=== PATIENT | male | born 1995 | race Caucasian/White ===

== ENCOUNTER 2024-11-04 13:41 | Inpatient (IN) | payer OTHER, SELFPAY ==
[2024-11-04 08:22] VITALS: BP 108/93
--- NOTE | 2024-11-04 09:17 | ED.GENMED ---
History of Present Illness
General
Chief Complaint: Skin Problem
Source: patient
Exam Limitations: none
Time Seen by Provider: 11/04/24 08:48
History of Present Illness
History of Present Illness:
29yoM with a history of obesity presenting with family members for evaluation of groin pain and swelling. Symptoms initially started 5 day ago with what he thought was an ingrown hair on the R side of the groin. He had a fever of 101 on his first
day of symptoms. He went to urgent care the following day and was diagnosed with cellulitis. He was told that there was no areas amenable to drainage and he was started on a course of Bactrim. He started to notice purulent drainage from the area
2-3 days ago. He began to experience sharp, stabbing pain in the groin yesterday as well as scrotal swelling. He continues to have chills but temperatures have been ranging from 98-99 the past few days. He is otherwise asymptomatic and denies any
vomiting, diarrhea, difficulty urinating, testicular pain. No prior history of MRSA.
Phy Exam
General Physical Exam
General Presentation: well appearing and no apparent distress
General age: appears stated age
General Skin: warm and dry
General Habitus: normal
General Mental: alert
ENT Exam
ENT Exam: normocephalic
Pulmonary Exam
Pulmonary Exam: no respiratory distress
Genitourinary Exam Male
Exam Male: other (Large area of induration present to the R groin/mons area with overlying erythema and warmth. There is an area laterally with foul smelling purulent drainage. +Reactive swelling to R scrotum. No crepitus, bullae, or pain out of
proportion. )
Neurological Exam
Neurological Exam: alert
Miguel Coma Scale
Eye Opening: Spontaneous
Verbal Response: Oriented
Motor Response: Obeys Commands
GCS Total Score: 15
Psychiatric Exam
Psychiatric Exam: normal mood/affect
Course
Orders/Labs/Results
Orders:
Orders
11/04/24 09:10
0.9% Sodium Chloride 1000 ml [Nss] 1,000 ml IV BOLUS
11/04/24 09:35
CT Pelvis With Iv Contrast Urgent
Comment:
Reason For Exam: Groin cellulitis, swelling
11/04/24 09:48
Complete Blood Count/With Diff Urgent
Comprehensive Metabolic Panel Urgent
Lactate Level [Lactic Acid] Urgent
Blood Culture Q30M
[facility] Source: Blood/Venous
Specimen Description:
Wound Culture [Wound/Abscess/Other Culture] Urgent
[facility]A Source: Groin
Specimen Description: Right
Date Specimen was Collected: 11/04/24
Time Specimen was Collected: 09:24
11/04/24 09:49
Blood Culture Q30M
[facility] Source: Blood/Venous
Specimen Description:
11/04/24 11:16
Diphenhydramine [Benadryl] 50 mg .ROUTE .STK-MED ONE
EPINEPHrine PF [Adrenalin] 1 mg .ROUTE .STK-MED ONE
11/04/24 11:17
Diphenhydramine [Benadryl] 50 mg IV NOW STA
11/04/24 11:43
Cefepime HCl [Maxipime] 2,000 mg IV NOW STA
11/04/24 11:57
Vancomycin [Vancocin] 2,000 mg 0.9% Sodium Chloride 500 ml [Nss] 500 ml IV NOW
11/04/24 12:58
Admit/Transfer Patient As Directed
Co-Sign Provider:
Level of Care: Inpatient admission
Assign to:: Medical/Surgical
Physician / Group: Presley
Diagnosis: Sepsis, Cellulitis
Reason for Hospitalization: IV abx
Expected length of stay greater than two midnights?: Yes
ELOS- Estimated Length of Stay in days: 3
I certify the patient meets the requirements for IP care: Yes
PRN Pain Medication Management As Directed
May give lesser potent ordered pain med per pt: Yes
preference::
Protocol:: Medication orders for pain may be administered in a
manner that supports deferring to patient preference
when the pt is:
- Requesting an ordered lesser potent pain medication.
Least to most potent pain medications are defined
as: acetaminophen < NSAID < tramadol < opioids
(morphine, oxycodone, hydromorphone).
- Requesting a lesser dose of the same medication IF
ORDERED.
- Requesting a less intrusive route of administration
if both routes are prescribed by the provider (PO <
IV).
11/04/24 12:59
Code Status As Directed
Resuscitation Status: Full Code
11/04/24 13:15
0.9% Sodium Chloride 1000 ml [Nss] 1,000 ml IV 100 mls/hr
Abnormal Lab Results
11/04/24
09:48
WBC 12.9 H 10^3/uL
(4.8-10.8)
RBC 4.42 L 10^6/uL
(4.70-6.10)
Hct 38.6 L %
(39.0-52.0)
MCH 31.4 H pg
(27.0-31.0)
Abs Immat Gran (auto) 0.1 H 10^3/uL
(0-0.05)
Absolute Neuts (auto) 10.4 H 10^3/uL
(1.4-6.5)
Absolute Monos (auto) 0.8 H 10^3/uL
(0.1-0.6)
Immature Gran % 0.9 H %
(0-0.5)
Neutrophils % 80.7 H %
(42.2-75.2)
Lymphocytes % 10.2 L %
(20.5-51.1)
Glucose 121 H mg/dl
(70-99)
ALT 70 H U/L
(0-50)
11/04/24 09:48
11/04/24 09:48
Vital Signs
Initial and Last Documented VS:
Initial Vital Signs
Temp Pulse Resp Pulse Ox
98.1 F 98 18 99
11/04/24 08:21 11/04/24 08:21 11/04/24 08:21 11/04/24 08:21
Last Documented Vital Signs
Temp Pulse Resp BP Pulse Ox
99.2 F 104 23 127/82 97
11/04/24 12:00 11/04/24 12:45 11/04/24 12:45 11/04/24 12:00 11/04/24 12:45
MDM/Problems Addressed
Differential Diagnosis Includes:
29yoM here with R groin pain/swelling x 5 days. Started as an ingrown hair and has been gradually worsening. Started on Bactrim 4 days ago without improvement. Tmax 101 at home. +Chills. Vitals normal on arrival. There is a large area of induration
and erythema in the groin region on exam as well as purulent drainage. Differential diagnosis includes but is not limited to: Cellulitis, abscess, no pain out of proportion or crepitus to suggest NSTI
Initial ED plan: Check septic workup including blood cultures, wound culture, lactate, and CT pelvis. IV fluid bolus.
*Critical Care Note
Total Time (30-74mins, 75-104mins- exclusive of procedures): Not Applicable
Update Note
Update Note:
Labs reveal a leukocytosis with a white count of 12.9. Lactate within normal limits. CT shows moderate to severe right inguinal cellulitis. Patient did have some hives after receiving IV contrast which resolved with IV Benadryl. No associated
shortness of breath or signs of anaphylaxis. IV cefepime and vancomycin ordered. Given failure of outpatient antibiotics, he was admitted for further management.
ED Attending Note
-
Portions of this chart may have been created with voice recognition software.� Occasional wrong word or��sound alike� substitutions may have occurred due to the inherent limitations of voice recognition software.
Discharge Plan
Departure
Patient Disposition: Admit
Date of Disposition: 11/04/24
Time of Disposition: 12:17
Presentation/result/management discussed w/ accepting MD/DO: Hospitalist
Discharge Problem:
Cellulitis of groin
Interventions
Interventions:
*Risk Screen - Suicide Last Done: 11/04/24 08:22
*General Assessment Last Done: 11/04/24 08:22
*Neglect/Abuse Screening Last Done: 11/04/24 08:22
*ED- Fall Risk Assessment Last Done: 11/04/24 10:00
ED-Male Genitourinary Assessment Last Done: 11/04/24 10:00
[2024-11-04 09:29] VITALS: BMI 52.2
[2024-11-04] MEDS: NSS 1000 IV ×2 (09:49→16:20)
[2024-11-04 10:05] LABS: % Basophils 0.8 % (0-2); % Eosinophils 1.1 % (0-6); % Immature Granulocytes 0.9 % (0-0.5); % Lymphocytes 10.2 % (20.5-51.1); % Monocytes 6.3 % (1.7-9.3); % Neutrophils 80.7 % (42.2-75.2); Absolute Basophils 0.1 10^3/uL (0-0.2); Absolute Eosinophils 0.1 10^3/uL (0-0.7); Absolute Immature Granulocytes 0.1 10^3/uL (0-0.05); Absolute Lymphocytes 1.3 10^3/uL (1.2-3.4); Absolute Monocytes 0.8 10^3/uL (0.1-0.6); Absolute Neutrophils 10.4 10^3/uL (1.4-6.5); Hematocrit 38.6 % (39.0-52.0); Hemoglobin 13.9 g/dL (13.0-18.0); Mean Corpuscular Hgb 31.4 pg (27.0-31.0); Mean Corpuscular Volume 87.3 fL (80.0-94.0); Mean Platelet Volume 9.6 fL (7.4-10.4); Nucleated Red Blood Cells % 0 % (-); Platelet Count 293 10^3/uL (130-400); Red Blood Cell Count 4.42 10^6/uL (4.70-6.10); Red Cell Dist. Width 11.6 % (11.5-14.5); White Blood Cell Count 12.9 10^3/uL (4.8-10.8)
[2024-11-04 10:16] LABS: Lactic Acid 1.6 mmol/L (0.7-2.0)
[2024-11-04 10:19] LABS: ALT (SGPT) 70 U/L (0-50); AST (SGOT) 26 U/L (17-59); Albumin 4.5 g/dl (3.5-5.0); Alkaline Phosphatase 60 U/L (38-126); Blood Urea Nitrogen 17 mg/dl (9-20); Calcium 9.7 mg/dl (8.4-10.2); Carbon Dioxide 23 mmol/L (22-30); Chloride 106 mmol/L (98-107); Estimated Creatinine Clearance > 125 ml/min; Glucose 121 mg/dl (70-99); Potassium 4.2 mmol/L (3.5-5.1); Sodium 141 mmol/L (135-145); Total Bilirubin 1.1 mg/dl (0.2-1.3); eGFR > 60.00
[2024-11-04] MEDS: BENADRYL 50 MG IV (11:15)
--- NOTE | 2024-11-04 11:30 | EDRN ---
After patient returned from CT via stretcher, while moving past this RN I noticed the left side of his face appeared to have new hives present. When inquiring on this the patient stated that he feels itchy and denies respiratory difficulty or
discomfort. VSS were stable and Rose Marie WILLETT notified while this RN obtained benadryl IVP. Gave 50mg benadryl IVP and continued to monitor the patient. After about 40 minutes the patient was no longer experiencing hives or itching.
[2024-11-04 12:00] VITALS: BP 127/82
[2024-11-04] MEDS: MAXIPIME 2000 MG IV (12:30)
[2024-11-04] MEDS: VANCOCIN 540 MG IV (12:30)
--- NOTE | 2024-11-04 12:48 | HPS.HSE ---
Family Physician
-
Family Physician: BRIGITTE Harden
Chief Complaint
-
Right Groin Redness and Pain
History of Present Illness
Patient is a 29 y/o male who presents with increasing pain, redness and drainage from right groin area. Patient reports he was seen at urgent care on Tuesday, 4 days ago at which time he was started on Bactrim for right groin cellulitis. He
reports redness was improving particularly along the thigh but over the past 24 hours he has been experiencing worsening pain and began with a significant amount of drainage from the area. He reports fevers as high as 101F on Tuesday, but notes
over the past few temps have been lower around 99F. He reports some chills the first night, but again reports those are improving.
Medical History
Past Medical History
Past Medical History: Reports None
Past Surgical History: Reports Other
Additional Past Surgical History:
[place] Teeth Extraction
Social History
Tobacco: Non-smoker
Alcohol: None
Family History
Family History: Not pertinent
Allergies / Home Medications
Allergies reflects when Allergies were last updated in [facility].
Home Medications with original date entered in [facility]
Allergy/Medication List:
Allergies
Allergy/AdvReac Type Severity Reaction Status Date / Time
Iodinated Contrast Media Allergy Mild Hives Verified 11/04/24 12:53
Home Medications
sulfamethoxazole 800 mg-trimethoprim 160 mg tablet 1 tab PO BID 11/04/24
Review of Systems
-
A 12 point ROS was completed and negative except as noted: Yes
Constitutional: Reports Fever and Chills
Respiratory: Denies Cough or Trouble Breathing
Cardiac: Denies Chest Pain or Palpitations
Abdomen/GI: Denies Nausea or Diarrhea
Physical Exam
Vital Signs
Vital Signs
Temp Pulse Resp BP Pulse Ox
98.1 F 98 18 108/93 99
11/04/24 08:21 11/04/24 08:21 11/04/24 08:21 11/04/24 08:22 11/04/24 08:21
Physical Exam
General: Comfortable and Conversant
HEENT: Anicteric and Moist mucous membranes
Respiratory: Clear and Non Labored Respirations
Cardiac: S1/S2, Regular Rhythm and Tachycardia
GI: Soft and Non Tender
Musculoskeletal: No Clubbing and No Cyanosis
Skin: Warm, Dry and Other (Large area of erythema with induration across right groin and mons. Two small open areas, superior area with small amount of purulent drainage noted with foul smelling odor)
Neuro: Awake, Alert and Oriented
Hematologic/Lymphatic: Lymphadenopathy (Right groin)
Psych: Calm
Laboratory Results
-
11/04/24 09:48
11/04/24 09:48
Laboratory Results
Lactic Acid 1.6 mmol/L (0.7-2.0) 11/04/24 09:48
Total Bilirubin 1.1 mg/dl (0.2-1.3) 11/04/24 09:48
AST 26 U/L (17-59) 11/04/24 09:48
ALT 70 U/L (0-50) H 11/04/24 09:48
Alkaline Phosphatase 60 U/L (38-126) 11/04/24 09:[address]:
1. MODERATE to SEVERE RIGHT INGUINAL CELLULITIS.
2. Mild reactive right inguinal lymphadenopathy.
Data Reviewed
-
CT Scan: Report Reviewed by me
Lab Data: Labs Reviewed by me
Impression/Plan
-
Sepsis secondary to Right Inguinal Cellulitis
-Consult Surgery
-Continue vancomycin, cefepime and metronidazole
-Await wound and blood culture
Class III Obesity
-Affects all aspects of care
DVT proph: Lovenox
Code Status: Full Code
[2024-11-04 13:00] VITALS: BP 127/86
--- NOTE | 2024-11-04 13:17 | W.PN.UPDATE ---
Addendum entered and electronically signed by Elle Sherwood MD 11/04/24 17:48:
On exam patient is awake, alert, in on distress. CV: S1, S2, RRR. Chest clear. Abdomen soft. Right groin with area of exudate and significant surrounding erythema.
Original Note:
Update Note
Progress Note Update
This is an addendum to H&P written by BRENNON Steve
I saw and examined the patient.
The CLINICAL TRAINER's note was reviewed and I agree with the note.
Comment:
Mr. Naveen Orozco is a 29 yo man with hx obesity who presents to the ER with worsening pain right groin. He was started on treatment for right groin cellulitis 4 days prior with receding redness but had increased pain today. Since being in the ER
he noticed increased purulent drainage with relief o discomfort.
Triage VS: T 98.1, P 98, RR 18, SpO2 99%
LABS: WBC 12.9, Hg 13.9, PLT 293, Na 141, K+ 4.2, CO2 23, Cr 1.1, Glucose 121, T. Bili 1.1, ALT 70, lactate 1[address]:
IMPRESSION:
1. MODERATE to SEVERE RIGHT INGUINAL CELLULITIS.
2. Mild reactive right inguinal lymphadenopathy.
PELVIS: There is a moderate to large amount of focal subcutaneous edema in the right inguinal region extending from the skin surface to the right inguinal canal. There is overlying mild skin thickening. There is a mild amount of right inguinal
lymphadenopathy. There is no evidence for rim-enhancing enhancing loculated fluid collection to suggest an abscess. There is no evidence for soft tissue emphysema.
Right Groin Cellulitis
Sepsis 2/2 Above
-patient likely had a collection that is now draining resulting in resolution of pain; no abscess seen on CT
-continue Vanc/Cefepime and add on Flagyl for anaerobic coverage
-IVF
-pain control
-GS consult
Allergic Reaction to contrast
-patient had hives post contrast; he was given Benadryl
-Hives placed in allergy list
[2024-11-04 14:00] VITALS: BP 109/58
[2024-11-04 15:00] VITALS: BP 127/76
--- NOTE | 2024-11-04 15:25 | CM ---
Patient seen at bedside in ED with mother present. Patient states that he lives with his mother in a 2 story home and has no DME at this time. Patient independent of all adl's and Iadl's. Patient stated that BRENNON Alvarado is his PCP and he uses the
[facility] in [place]. Patient plan for discharge is to return to home with VN vs home with no needs.
Plan; home with VN vs home with no needs.
--- NOTE | 2024-11-04 15:38 | EDRN ---
Sent report to as the patient has had a room assigned for over 1 hour. When giving verbal notification that report was sent, Ingrid on stated they asked the nursing reduction plant supervisor to provide a private room and sent report back to this RN.
[2024-11-04 16:11] VITALS: BP 158/98; BMI 52.0
--- NOTE | 2024-11-04 16:35 | PTCARENOTE ---
Rec'd pt from ER. walked from stretcher to bed. NSS started at 100ml/hr per order. Denies pain. Mom at bedside. Oriented to room. Call velasco in reach.
[2024-11-04] MEDS: MAXIPIME 1000 MG IV (17:47)
[2024-11-04] MEDS: STERILE WATER FOR INJECTION 10 ML IV (17:47)
[2024-11-04] MEDS: FLAGYL 500 MG 100 IV (17:50)
[2024-11-04] MEDS: LOVENOX 60 MG SC (19:54)
--- NOTE | 2024-11-04 23:22 | PHA.VAN.IN ---
Assessment
- Assessment
Renal Function: Unknown baseline
Concomitant Antimicrobials: metronidazole, cefepime
AUC Dosing Plan
- Dosing Variables
Dosing Weight (kg): 159
Dosing CrCl (ml/min): 125
Vd coefficient (L/kg): 0.4
- Empiric Dosing
Initial / Loading Dose: Vancomycin 2000mg administered 11/04 at 1230
Maintenance Regimen: Vancomycin 1000mg IV Q8h
Estimated AUC (mcg*h/mL): 460
Estimated Peak (mcg*h/mL): 27.2
Estimated Trough (mcg/ml): 12.7
Estimated Half Life (H): 6
- Monitoring
No levels ordered at this time: Will f/u and order levels prior to steady state.
Pharmacokinetics Vancomycin I
- -
Patient Age: 29
Patient Sex: Male
Vancomycin Day #: 1
Indication: Skin And Soft Tissue
Requesting Provider: BRENNON Mcnally
Pertinent Antimicrobial Allergies:
no pertinent antibiotic allergies
Height / Weight:
Height 5 ft 9 in
Actual Weight 159.574 kg
Pertinent Past Medical History: BMI 52, filled Sulfamethoxazole/trimethoprim 10/31/24
- Vital Signs / Lab Results
Temp Pulse Resp BP Pulse Ox
98.9 F 103 16 158/98 98
11/04/24 16:11 11/04/24 16:11 11/04/24 16:11 11/04/24 16:11 11/04/24 16:11
Lab Results - Hematology
11/04/24
09:48
WBC 12.9 H
Lab Results - Chemistry
11/04/24
09:48
BUN 17
Creatinine 1.1
Estimated Creat Clear > 125
Albumin 4.5
11/04/24
09:48
Lactic Acid 1.6
Microbiology Results
11/04/24 09:48 Gram Stain - Preliminary
Promisein - Right
[2024-11-04] MEDS: VANCOCIN 200 IV (23:49)
[2024-11-05 00:37] VITALS: BP 158/90
[2024-11-05] MEDS: STERILE WATER FOR INJECTION 10 ML IV ×5 (00:57→23:13)
[2024-11-05] MEDS: MAXIPIME 1000 MG IV ×5 (00:57→23:12)
[2024-11-05] MEDS: FLAGYL 500 MG 100 IV ×3 (01:00→17:10)
[2024-11-05] MEDS: NSS 1000 IV ×2 (04:33→14:51)
[2024-11-05] MEDS: VANCOCIN 200 IV ×3 (05:12→21:37)
[2024-11-05 07:38] VITALS: BP 150/87
[2024-11-05] MEDS: LOVENOX 60 MG SC ×2 (08:00→20:04)
--- NOTE | 2024-11-05 08:33 | W.PN.HOSP.TC ---
Today's Communication/Plan
-
I&D performed today
Continue antibiotics
Follow cultures
Assessment / Plan
Assessment / Plan
Physical Exam
General: Comfortable and Conversant
HEENT: Anicteric and Moist mucous membranes
Respiratory: Clear to Auscultation Bilaterally
Cardiac: S1/S2, Regular Rate and Rhythm
GI: Soft and Non Tender. Positive bowel sounds.
Musculoskeletal: No Cyanosis
Skin: Warm. Dry. Right groin with area of exudate and significant surrounding erythema.
Neuro: Awake, Alert and Oriented
Hematologic/Lymphatic: Lymphadenopathy (Right groin)
Psych: Calm
Assessment/Plan
29 y/o male with history of obesity who presented with increasing pain, redness and drainage from right groin area. Patient reports he was seen at urgent care on October 31, 2024 at which time he was started on Bactrim for right groin cellulitis. He
reported redness was improving particularly along the thigh but over the 24 hours prior to presentation, he had been experiencing worsening pain and began with a significant amount of drainage from the area. He reported fevers as high as 101 F on
October 31, 2024, but notes over the past few temps (prior to presentation( have been lower around 99 F. He reports some chills the first night, but again reported that those are improving.
Triage VS: T 98.1, P 98, RR 18, SpO2 99%
LABS: WBC 12.9, Hg 13.9, PLT 293, Na 141, K+ 4.2, CO2 23, Cr 1.1, Glucose 121, T. Bili 1.1, ALT 70, lactate 1[address]:
IMPRESSION:
1. MODERATE to SEVERE RIGHT INGUINAL CELLULITIS.
2. Mild reactive right inguinal lymphadenopathy.
PELVIS: There is a moderate to large amount of focal subcutaneous edema in the right inguinal region extending from the skin surface to the right inguinal canal. There is overlying mild skin thickening. There is a mild amount of right inguinal
lymphadenopathy. There is no evidence for rim-enhancing enhancing loculated fluid collection to suggest an abscess. There is no evidence for soft tissue emphysema.
Right Groin Cellulitis
Sepsis 2/2 Above
-patient likely had a collection that is now draining resulting in resolution of pain; no abscess seen on CT
-continue Vanc/Cefepime and Flagyl was added on for anaerobic coverage
-IVF
-pain control
-General surgery was consulted: performed I&D on 11/05/24 -- no vinnie pus, some murky fluid was sent for culture
Allergic Reaction to contrast
-patient had hives post contrast; he was given Benadryl
-Hives placed in allergy list
Class III Obesity
-Affects all aspects of care
DVT proph: Lovenox
Code Status: Full Code
Anticipated Discharge: > 48 hours
Subjective/Interval History
-
Date of Service: November 05, 2024
Patient was seen and examined. He reported feeling better today, no new symptoms or complaints.
Objective Data
-
Labs:
Laboratory Results
11/05/24
08:15
WBC Pending
Hgb Pending
Hct Pending
Plt Count Pending
Sodium Pending
Potassium Pending
Chloride Pending
Carbon Dioxide Pending
BUN Pending
Creatinine Pending
Glucose Pending
Calcium Pending
Vital Signs:
Vital Signs
Temp Pulse Resp BP Pulse Ox
99.8 F 70 18 150/87 99
11/05/24 07:38 11/05/24 07:38 11/05/24 07:38 11/05/24 07:38 11/05/24 07:38
I&O
11/04/24 11/05/24 11/06/24
06:59 06:59 06:59
Intake Total 960 / 960
Balance 960 / 960
[2024-11-05 09:03] LABS: Hematocrit 40.5 % (39.0-52.0); Hemoglobin 14.2 g/dL (13.0-18.0); Mean Corp Hgb Conc. 35.1 g/dL (33.0-37.0); Mean Corpuscular Hgb 30.8 pg (27.0-31.0); Mean Corpuscular Volume 87.9 fL (80.0-94.0); Mean Platelet Volume 9.4 fL (7.4-10.4); Platelet Count 302 10^3/uL (130-400); Red Blood Cell Count 4.61 10^6/uL (4.70-6.10); Red Cell Dist. Width 11.5 % (11.5-14.5); White Blood Cell Count 8.3 10^3/uL (4.8-10.8)
[2024-11-05 09:19] LABS: Blood Urea Nitrogen 10 mg/dl (9-20); Calcium 9.3 mg/dl (8.4-10.2); Carbon Dioxide 26 mmol/L (22-30); Chloride 107 mmol/L (98-107); Estimated Creatinine Clearance > 125 ml/min; Glucose 97 mg/dl (70-99); Potassium 4.1 mmol/L (3.5-5.1); Sodium 141 mmol/L (135-145); eGFR > 60.00
[2024-11-05 09:40] LABS: Glycohemoglobin (HgbA1c) 4.8 % (4.0-5.6)
--- NOTE | 2024-11-05 10:17 | CON.GS ---
Addendum entered and electronically signed by Keron Rothman MD 11/05/24 16:52:
I saw and examined the patient independently.
The Public Health Assistant's note was reviewed and I agree with the note, assessment and plan except where noted below.
Comment: This is a 29-year-old male with a history of morbid obesity found to have increasing pain, redness and more recently discharge from the wound/abscess in the right groin thought to be from an ingrown hair. CT scan demonstrated fat
stranding in this area as well as enlarged lymph nodes but no radiographic abscess or collection. General surgery consulted for management.
Will plan for bedside incision and drainage. See separately dictated note.
Continue antibiotics, follow-up cultures.
Risks/Benefits/Alternatives, expected postoperative course and possible complications (bleeding, infection, injury to surrounding structures, acute/chronic pain) discussed at length. Patient wishes to proceed with surgery. All questions answered.
Consent obtained.
I spent 65 minutes in total for the care of this patient today including direct patient care and counseling, reviewing labs, imaging, coordination of care, as well as documentation.
Original Note:
Consultation
-
Date/Time Consultation Performed: 11/05/24914
Medical History
-
Chief Complaint: Right groin drainage
History of Present Illness:
This is a 29 yo male with a h/o morbid obesity who presented through the ED with increasing pain and erythema to his right groin with serous drainage. Around October 30, he noted inflammation in his groin which he attributed to an ingrown hair. He had
a fever of 101 and chills and the swelling and edema increased by the following day so he presented to an urgent care and was prescribed Bactrim. He has had intermittent chills at night but denies fevers since that time. Yesterday, he began having
serous drainage from the site with increasing pain and continued inflammation and erythema causing him to present through the ED for evaluation. On exam, there is serous weeping through a pinpoint opening of an indurated and erythematous area to the
right groin.
Past Medical History
Past Medical History: Other (morbid obesityy)
Past Surgical History: Other (wisdom teeth)
Social History
Tobacco: Non-Smoker
Alcohol: None
Family History
Family History: Reviewed & Not Pertinent
Allergies / Home Medications
Allergy/AdvReac Type Severity Reaction Status Date / Time
Iodinated Contrast Media Allergy Mild Hives Verified 11/04/24 12:53
�Medication �Instructions �Recorded �Confirmed �Type
ibuprofen 200 mg tablet 600 mg PO BIDPRN PRN mild pain 11/04/24 11/04/24 History
sulfamethoxazole 800 1 tab PO BID 11/04/24 11/04/24 History
mg-trimethoprim 160 mg tablet
Review of Systems
-
History Source: Patient
All other systems: Negative unless noted
A 10 point review of systems was completed, and was negative except as per HPI.
Physical Exam
Vital Signs
Temp Pulse Resp BP Pulse Ox
99.8 F 70 18 150/87 99
11/05/24 07:38 11/05/24 07:38 11/05/24 07:38 11/05/24 07:38 11/05/24 07:38
11/04/24 11/05/24 11/06/24
06:59 06:59 06:59
Actual Weight 159.574 kg
Body Mass Index (BMI) 52.0
Lab Results
11/05/24 08:15
11/05/24 08:15
WBC 8.3 10^3/uL (4.8-10.8) 11/05/24 08:15
Hgb 14.2 g/dL (13.0-18.0) 11/05/24 08:15
Hct 40.5 % (39.0-52.0) 11/05/24 08:15
Plt Count 302 10^3/uL (130-400) 11/05/24 08:15
Abs Immat Gran (auto) 0.1 10^3/uL (0-0.05) H 11/04/24 09:48
Neutrophils % 80.7 % (42.2-75.2) H 11/04/24 09:48
Physical Exam
General: Well Developed and No Apparent Distress
HEENT: Moist Mucous Membranes
Respiratory: Non Labored Respirations
GI: Soft, Non Tender and Non Distended
Skin: Warm and Other (erythema and induration to the right groin with serous drainage)
Neuro: Awake, Alert and AO x 3
Psych: Calm
Assessment / Plan
-
29 yo male presenting with right groin which has failed outpatient abx (Bactrim). Leukocytosis on presentation has resolved with abx. A1C WNL. CT pelvis reviewed with demonstrates moderate to severe cellulitis with subq edema to the right inguinal
region/canal with some mild lymphadenopathy. AFVSS. Pain is well controlled but the area is tender on exam with local erythema, serous drainage and induration. Wound cx pending. Blood cx NGTD.
--Continue ABX and await cultures
--Continue current diet
--Will plan bedside I&D later today
--- NOTE | 2024-11-05 11:46 | PHA.VAN.FU ---
Addendum entered and electronically signed by Renae Vazquez [facility] 11/05/24 16:57:
BUN & SCR ordered per protocol
Original Note:
Vancomycin Assessment / Plan
- Assessment
Renal Function: Stable (1.0)
WBC's are: WNL (8.3)
In the past 24 hrs, patient has been: Afebrile
Concomitant Antimicrobials: Cefepime, Metronidazole
- Dosing Plan
Continue: Vanco 1000mg Q8H
- Monitoring Plan
Trough Level: T level 11/06/24 0530
Monitoring Comments: Pre-Steady State
- Follow Up
Pharmacy will continue to follow.
Vancomycin Follow UP
- -
Patient Age: 29
Patient Sex: Male
Vancomycin Day #: 2
Indication: Skin And Soft Tissue
Requesting Provider: BRENNON Mcnally
Pertinent Antimicrobial Allergies:
no pertinent antibiotic allergies
Height / Weight:
Height 5 ft 9 in
Actual Weight 159.574 kg
Pertinent Past Medical History: BMI 52, filled Sulfamethoxazole/trimethoprim 10/31/24
- Vital Signs / Lab Results
Temp Pulse Resp BP Pulse Ox
99.8 F 70 18 150/87 99
11/05/24 07:38 11/05/24 07:38 11/05/24 07:38 11/05/24 07:38 11/05/24 07:38
Lab Results - Hematology
11/04/24 11/05/24
09:48 08:15
WBC 12.9 H 8.3
Lab Results - Chemistry
11/04/24 11/05/24
09:48 08:15
BUN 17 10
Creatinine 1.1 1.0
Estimated Creat Clear > 125 > 125
Albumin 4.5
11/04/24
09:48
Lactic Acid 1.6
Microbiology Results
11/04/24 09:48 Blood Culture - Preliminary
Blood/Venous No Growth in 24 hours- Final report to follow
11/04/24 09:49 Blood Culture - Preliminary
Blood/Venous No Growth in 24 hours- Final report to follow
11/04/24 09:48 Wound Culture - Preliminary
Groin - Right Gram Stain - Preliminary
[2024-11-05] MEDS: DILAUDID 1 MG IV (13:00)
--- NOTE | 2024-11-05 13:34 | W.PN.SURGUPD ---
Surgical Update
Surgical Update
Bedside incision and Drainage
A team time-out was performed confirming the location/laterality of the procedure, consent and allergies reviewed.
Location: Right groin
Dimensions: 5 x 3 cm
Local: 1% Lidocaine
Pharmacy Informaticist: Joanna
The skin was cleaned with alcohol and anesthetized with lidocaine. A cruciate incision was made over the lesion and dissection carried down through subcutaneous tissue. The cavity was identified, and there was some release of hemorrhagic murky fluid
but no vinnie pus. The wound was irrigated with sterile saline. Hemostasis was obtained. There was minimal blood loss. The skin was packed with a packing strip. A culture was sent. The patient tolerated the procedure well, discharge instructions
reviewed and all questions were answered.
--- NOTE | 2024-11-05 13:34 | CM ---
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
Plan; Home when stable.
[2024-11-05] MEDS: XYLOCAINE 2% WITH EPINEPHRINE 20 ML INFIL (14:51)
[2024-11-05 15:12] VITALS: BP 150/86
[2024-11-05] MEDS: TORADOL 15 MG IV (17:10)
[2024-11-05 23:25] VITALS: BP 162/92
[2024-11-06] MEDS: FLAGYL 500 MG 100 IV ×3 (02:02→16:36)
[2024-11-06 02:08] VITALS: BP 131/85
[2024-11-06] MEDS: STERILE WATER FOR INJECTION 10 ML IV ×3 (05:20→16:36)
[2024-11-06] MEDS: NSS 1000 IV (05:20)
[2024-11-06] MEDS: MAXIPIME 1000 MG IV ×3 (05:20→16:36)
[2024-11-06 06:31] LABS: Blood Urea Nitrogen 13 mg/dl (9-20); Calcium 10.2 mg/dl (8.4-10.2); Carbon Dioxide 29 mmol/L (22-30); Chloride 105 mmol/L (98-107); Estimated Creatinine Clearance > 125 ml/min; Glucose 104 mg/dl (70-99); Potassium 4.9 mmol/L (3.5-5.1); Sodium 146 mmol/L (135-145); eGFR > 60.00
[2024-11-06 06:41] LABS: Vancomycin Trough 7.5 ug/ml (5-20)
[2024-11-06 06:51] LABS: % Basophils 1.1 % (0-2); % Eosinophils 2.9 % (0-6); % Lymphocytes 22.1 % (20.5-51.1); % Monocytes 6.4 % (1.7-9.3); % Neutrophils 66.5 % (42.2-75.2); Absolute Basophils 0.1 10^3/uL (0-0.2); Absolute Eosinophils 0.4 10^3/uL (0-0.7); Absolute Immature Granulocytes 0.1 10^3/uL (0-0.05); Absolute Lymphocytes 2.6 10^3/uL (1.2-3.4); Absolute Monocytes 0.8 10^3/uL (0.1-0.6); Absolute Neutrophils 7.9 10^3/uL (1.4-6.5); Hematocrit 41.9 % (39.0-52.0); Hemoglobin 14.8 g/dL (13.0-18.0); Mean Corp Hgb Conc. 35.3 g/dL (33.0-37.0); Mean Corpuscular Volume 87.7 fL (80.0-94.0); Mean Platelet Volume 9.4 fL (7.4-10.4); Nucleated Red Blood Cells % 0 % (-); Platelet Count 375 10^3/uL (130-400); Red Blood Cell Count 4.78 10^6/uL (4.70-6.10); Red Cell Dist. Width 11.4 % (11.5-14.5); White Blood Cell Count 11.9 10^3/uL (4.8-10.8)
[2024-11-06 07:30] VITALS: BP 165/93
[2024-11-06] MEDS: VANCOCIN 200 IV ×2 (08:06→13:19)
[2024-11-06] MEDS: LOVENOX 60 MG SC (08:10)
--- NOTE | 2024-11-06 08:48 | W.PN.SURGUPD ---
Surgical Update
Surgical Update
Patient reports improvement in discomfort. Packing removed. Minimal to no drainage. Continues with some mild erythema and induration. Area replaced with gauze and an ABD. Recommend diligent hygiene, sitz baths and washing of the area. Coverage
with overlying gauze and ABDs. Cultures pending, will need discharge on antibiotics. No plans or role for further surgical intervention. Please call with any questions or concerns.
--- NOTE | 2024-11-06 08:57 | PHA.VAN.FU ---
Vancomycin Assessment / Plan
- Assessment
Renal Function: Stable (1.0)
WBC's are: Trending Up (8.3->11.9)
In the past 24 hrs, patient has been: Afebrile
Concomitant Antimicrobials: Cefepime, Metronidazole
- Assessment - Trough Based Monitoring
Trough Value: 7.5
Level Today was: At Pre-Steady State (after 4th maintenance dose)
- Dosing Plan
Adjust Regimen to: Vanco 1250mg Q8H starting 11/06/24 2200
- Monitoring Plan
No level(s) ordered at this time: Consider in the next few days
- Follow Up
Pharmacy will continue to follow.
Vancomycin Follow UP
- -
Patient Age: 29
Patient Sex: Male
Vancomycin Day #: 3
Indication: Skin And Soft Tissue
Requesting Provider: BRENNON Mcnally
Pertinent Antimicrobial Allergies:
no pertinent antibiotic allergies
Height / Weight:
Height 5 ft 9 in
Actual Weight 159.574 kg
Pertinent Past Medical History: BMI 52, filled Sulfamethoxazole/trimethoprim 10/31/24
- Vital Signs / Lab Results
Temp Pulse Resp BP Pulse Ox
97.7 F 79 20 165/93 98
11/06/24 07:30 11/06/24 07:30 11/06/24 07:30 11/06/24 07:30 11/06/24 07:30
Lab Results - Hematology
11/04/24 11/05/24 11/06/24
09:48 08:15 05:48
WBC 12.9 H 8.3 11.9 H
Lab Results - Chemistry
11/04/24 11/05/24 11/06/24
09:48 08:15 05:48
BUN 17 10 13
Creatinine 1.1 1.0 1.0
Estimated Creat Clear > 125 > 125 > 125
Albumin 4.5
11/04/24
09:48
Lactic Acid 1.6
Microbiology Results
11/04/24 09:48 Blood Culture - Preliminary
Blood/Venous No Growth in 24 hours- Final report to follow
11/04/24 09:49 Blood Culture - Preliminary
Blood/Venous No Growth in 24 hours- Final report to follow
11/04/24 09:48 Wound Culture - Preliminary
Groin - Right Gram Stain - Preliminary
Therapeutic Drug Monitoring
Vancomycin Trough 7.5 ug/ml (5-20) 11/06/24 05:48
--- NOTE | 2024-11-06 13:41 | W.PN.HOSP.TC ---
Today's Communication/Plan
-
Follow cultures
Continue antibiotics
Appreciate ID
Assessment / Plan
Assessment / Plan
Physical Exam
General: Comfortable and Conversant
HEENT: Normocephalic. Moist mucous membranes
Respiratory: Clear to Auscultation Bilaterally
Cardiac: S1/S2, Regular Rate and Rhythm
GI: Soft and Non Tender. Positive bowel sounds.
Musculoskeletal: No Cyanosis
Skin: Warm. Dry. Right groin with area of exudate and significant surrounding erythema.
Neuro: Awake, Alert and Oriented
Hematologic/Lymphatic: Lymphadenopathy (Right groin)
Psych: Calm
Assessment/Plan
29 y/o male with history of obesity who presented with increasing pain, redness and drainage from right groin area. Patient reports he was seen at urgent care on October 31, 2024 at which time he was started on Bactrim for right groin cellulitis. He
reported redness was improving particularly along the thigh but over the 24 hours prior to presentation, he had been experiencing worsening pain and began with a significant amount of drainage from the area. He reported fevers as high as 101 F on
October 31, 2024, but notes over the past few temps (prior to presentation( have been lower around 99 F. He reports some chills the first night, but again reported that those are improving.
Triage VS: T 98.1, P 98, RR 18, SpO2 99%
LABS: WBC 12.9, Hg 13.9, PLT 293, Na 141, K+ 4.2, CO2 23, Cr 1.1, Glucose 121, T. Bili 1.1, ALT 70, lactate 1[address]:
IMPRESSION:
1. MODERATE to SEVERE RIGHT INGUINAL CELLULITIS.
2. Mild reactive right inguinal lymphadenopathy.
PELVIS: There is a moderate to large amount of focal subcutaneous edema in the right inguinal region extending from the skin surface to the right inguinal canal. There is overlying mild skin thickening. There is a mild amount of right inguinal
lymphadenopathy. There is no evidence for rim-enhancing enhancing loculated fluid collection to suggest an abscess. There is no evidence for soft tissue emphysema.
Severe Right Groin Cellulitis
Sepsis 2/2 Above
-patient likely had a collection that is now draining resulting in resolution of pain; no abscess seen on CT
-continue Vanc/Cefepime and Flagyl was added on for anaerobic coverage
-IVF
-pain control
-General surgery was consulted: performed I&D on 11/05/24 -- no vinnie pus, some murky fluid was sent for culture
-Follow cultures
-ID consulted given severity and location of cellulitis, appreciate their evaluation and recommendations
Mild Hypernatremia
-Nurse will encourage patient to drink more water
Allergic Reaction to contrast
-patient had hives post contrast; he was given Benadryl
-Hives placed in allergy list
Class III Obesity
-Affects all aspects of care
On November 06, 2024, I spoke to patient and patient's parents inside patient's room; all questions and concerns were answered to satisfaction.
DVT Prophylaxis: Lovenox
Code Status: Full Code
Anticipated Discharge: 24 - 48 hours
Subjective/Interval History
-
Date of Service: November 06, 2024
Patient was seen and examined. He reported feeling a lot better, still significant pain with dressing manipulation in the affected area.
Objective Data
-
Labs:
Laboratory Results
11/06/24
05:48
WBC 11.9 H
Hgb 14.8
Hct 41.9
Plt Count 375 D
Sodium 146 H
Potassium 4.9
Chloride 105
Carbon Dioxide 29
BUN 13
Creatinine 1.0
Glucose 104 H
Calcium 10.2
Vital Signs:
Vital Signs
Temp Pulse Resp BP Pulse Ox
97.7 F 79 20 165/93 99
11/06/24 07:30 11/06/24 07:30 11/06/24 07:30 11/06/24 07:30 11/06/24 08:00
I&O
11/05/24 11/06/24 11/07/24
06:59 06:59 06:59
Intake Total 960 / 960 1680 / 1680
Balance 960 / 960 1680 / 1680
[2024-11-06 15:00] VITALS: BP 144/88
--- NOTE | 2024-11-06 16:58 | CON.ID ---
Consultation
-
Date/Time Consultation Requested: 11/06/2024 1231
Date/Time Consultation Performed: 11/06/2024 1625
Requesting Provider: Dr. Gonzalez
Performing Provider: Dr. Saunders
Reason for Consultation: Right groin infection
Chief Complaint / Past History
History of Present Illness
Naveen Orozco is a 29-year-old man with a significant past medical history of morbid obesity being evaluated in infectious disease consultation regarding a right groin SSTI. History is obtained from chart review, along with patient interview.
Additional history was obtained from the patient's mother who was in the room.
The patient reports he was in his usual state of health until approximately 5 days prior to admission when he developed what appeared to be an ingrown hair on his right groin area. He reports later in that day he tried to pop it, but no purulence
was expressed. Early the next day he noted increasing size of redness and discomfort and recalls having an episode of rigors. The following day he went to urgent care and was evaluated. He was diagnosed with apparent cellulitis and sent on a
course of Bactrim DS. Over the next 3 days he reports that he initially improved but 2 days ago noted marked increase in pain in the right groin, along with increased swelling and redness. He came to the emergency room on 11/04/2024 for further
evaluation, and once here, he reports there was spontaneous drainage of purulence. Since admission, he has been evaluated by Surgery and has undergone I&D. Cultures are currently pending. Infectious Diseases is asked to comment on further
antimicrobial management.
Past History
Additional Past Medical History:
morbid obesity (BMI = 52)
Past Surgical History: None
Allergy History:
Iodinated Contrast Media Allergy (Mild, Verified 11/04/24 12:53)
Hives
Medications Reviewed: Yes
Current Antibiotics:
Vancomycin
Cefepime
Metronidazole
Social History
Tobacco: Non-Smoker
Alcohol: None
Drug: None
Personal: Single
Living: With Family
Employment: Not Employed
Review of Systems
Vital Signs
Temp Pulse Resp BP Pulse Ox
98.1 F 73 18 144/88 97
11/06/24 15:00 11/06/24 15:00 11/06/24 15:00 11/06/24 15:00 11/06/24 15:00
Physical Exam
Physical Exam
Constitutional: No Acute Distress, Comfortable, Non-toxic and Obese
Eyes: No Conjunctival Hemorrhage and Sclera Anicteric
Oral: No Thrush and No Ulcers
Cardiovascular: Regular Rate and S1/S2; Negative S3/S4
Pulmonary: Clear; Negative Wheezes, Rales or Rhonchi
Gastrointestinal: Soft, Non Tender, Non Distended, Normal Bowel Sounds, No Rebound and No Guarding
Genito-Urinary: Negative Glynn
Extremities: Negative Edema, Cyanosis or Erythema
Wound: Other (Right groin area with induration and erythema. Bloody drainage noted around area of I&D.)
Neurological: Awake and Alert
Psychological: Calm
Lab / Diagnostic Study Results
11/06/24 05:48
11/06/24 05:48
Abs Immat Gran (auto) 0.1 10^3/uL (0-0.05) H 11/06/24 05:48
Absolute Neuts (auto) 7.9 10^3/uL (1.4-6.5) H 11/06/24 05:48
Absolute Lymphs (auto) 2.6 10^3/uL (1.2-3.4) 11/06/24 05:48
Absolute Monos (auto) 0.8 10^3/uL (0.1-0.6) H 11/06/24 05:48
Absolute Basos (auto) 0.1 10^3/uL (0-0.2) 11/06/24 05:48
Immature Gran % 1.0 % (0-0.5) H 11/06/24 05:48
Neutrophils % 66.5 % (42.2-75.2) 11/06/24 05:48
Lymphocytes % 22.1 % (20.5-51.1) 11/06/24 05:48
Monocytes % 6.4 % (1.7-9.3) 11/06/24 05:48
Eosinophils % 2.9 % (0-6) 11/06/24 05:48
Basophils % 1.1 % (0-2) 11/06/24 05:48
Lactic Acid 1.6 mmol/L (0.7-2.0) 11/04/24 09:48
Microbiology Results
Micro:
11/05/24 14:07 Wound Culture - Preliminary
Groin - Right Gram Stain - Preliminary
11/05/24 13:46 Anaerobic Culture - Preliminary
Groin - Right Culture pending. Anaerobic cultures are examined after 3
days incubation. Additional information to follow.
11/04/24 09:49 Blood Culture - Preliminary
Blood/Venous No Growth in 48 hours- Final report to follow
11/04/24 09:48 Blood Culture - Preliminary
Blood/Venous No Growth in 48 hours- Final report to follow
11/04/24 09:48 Wound Culture - Preliminary
Groin - Right Gram Stain - Preliminary
11/04/24 16:42 MRSA Screen - Final
Nose No Methicillin Resistant Staphylococcus aureus isolated.
Imaging:
11/04/2024 CT pelvis with contrast: There is a moderate to large amount of focal subcutaneous edema in the right inguinal region extending from the skin surface to the right inguinal canal. There is overlying mild skin thickening. There is a mild
amount of right inguinal lymphadenopathy. There is no evidence for rim-enhancing enhancing loculated fluid collection to suggest an abscess. There is no evidence for soft tissue emphysema.
Assessment / Plan
Right groin SSTI
Fevers
Leukocytosis
Morbid obesity
Recommendations:
Cultures currently pending, but revealed gram-positive cocci and gram-negative rods. This may be synergistic infection.
Continue current antibiotics pending further culture data
Follow Vanco levels closely to prevent nephrotoxicity.
Local care to the wound area.
Follow pending cultures to guide antibiotic selection and potential de-escalation.
Further recommendations as additional data is returned.
[2024-11-06] MEDS: LOVENOX SC (22:15)
[2024-11-06] MEDS: VANCOCIN 275 MG IV (22:16)
[2024-11-06 23:44] VITALS: BP 156/96
[2024-11-07] MEDS: MAXIPIME 1000 MG IV ×3 (00:09→11:20)
[2024-11-07] MEDS: STERILE WATER FOR INJECTION 10 ML IV ×3 (00:09→11:21)
[2024-11-07] MEDS: FLAGYL 500 MG 100 IV ×2 (02:28→11:20)
[2024-11-07] MEDS: VANCOCIN 275 MG IV ×2 (05:41→14:25)
[2024-11-07 07:51] VITALS: BP 148/86
[2024-11-07 07:53] LABS: % Basophils 1.1 % (0-2); % Eosinophils 3.1 % (0-6); % Lymphocytes 18.7 % (20.5-51.1); % Monocytes 7.4 % (1.7-9.3); % Neutrophils 68.7 % (42.2-75.2); Absolute Basophils 0.1 10^3/uL (0-0.2); Absolute Eosinophils 0.4 10^3/uL (0-0.7); Absolute Immature Granulocytes 0.1 10^3/uL (0-0.05); Absolute Lymphocytes 2.1 10^3/uL (1.2-3.4); Absolute Monocytes 0.8 10^3/uL (0.1-0.6); Absolute Neutrophils 7.7 10^3/uL (1.4-6.5); Hematocrit 39.4 % (39.0-52.0); Mean Corp Hgb Conc. 35.5 g/dL (33.0-37.0); Mean Corpuscular Hgb 30.9 pg (27.0-31.0); Mean Platelet Volume 9.7 fL (7.4-10.4); Nucleated Red Blood Cells % 0 % (-); Platelet Count 348 10^3/uL (130-400); Red Blood Cell Count 4.53 10^6/uL (4.70-6.10); Red Cell Dist. Width 11.4 % (11.5-14.5); White Blood Cell Count 11.2 10^3/uL (4.8-10.8)
[2024-11-07 08:14] LABS: Blood Urea Nitrogen 13 mg/dl (9-20); Calcium 9.4 mg/dl (8.4-10.2); Carbon Dioxide 27 mmol/L (22-30); Chloride 104 mmol/L (98-107); Estimated Creatinine Clearance > 125 ml/min; Glucose 97 mg/dl (70-99); Potassium 4.4 mmol/L (3.5-5.1); Sodium 141 mmol/L (135-145); eGFR > 60.00
--- NOTE | 2024-11-07 09:06 | PHA.VAN.FU ---
Vancomycin Assessment / Plan
- Assessment
Renal Function: Stable (1.0)
WBC's are: Trending Down (11.9->11.2)
In the past 24 hrs, patient has been: Afebrile
Concomitant Antimicrobials: Metronidazole, Cefepime
- Dosing Plan
Continue: Vanco 1250mg Q8H
- Monitoring Plan
No level(s) ordered at this time: Consider in the next few days
- Follow Up
Pharmacy will continue to follow.
Vancomycin Follow UP
- -
Patient Age: 29
Patient Sex: Male
Vancomycin Day #: 4
Indication: Skin And Soft Tissue
Requesting Provider: BRENNON Mcnally
Pertinent Antimicrobial Allergies:
no pertinent antibiotic allergies
Height / Weight:
Height 5 ft 9 in
Actual Weight 159.574 kg
Pertinent Past Medical History: BMI 52, filled Sulfamethoxazole/trimethoprim 10/31/24
- Vital Signs / Lab Results
Temp Pulse Resp BP Pulse Ox
98.1 F 77 18 148/86 98
11/07/24 07:51 11/07/24 07:51 11/07/24 07:51 11/07/24 07:51 11/07/24 07:51
Lab Results - Hematology
11/04/24 11/05/24 11/06/24
09:48 08:15 05:48
WBC 12.9 H 8.3 11.9 H
11/07/24
06:33
WBC 11.2 H
Lab Results - Chemistry
11/04/24 11/05/24 11/06/24
09:48 08:15 05:48
BUN 17 10 13
Creatinine 1.1 1.0 1.0
Estimated Creat Clear > 125 > 125 > 125
Albumin 4.5
11/07/24
06:33
BUN 13
Creatinine 1.0
Estimated Creat Clear > 125
Albumin
11/04/24
09:48
Lactic Acid 1.6
Microbiology Results
11/05/24 14:07 Wound Culture - Preliminary
Groin - Right Gram Stain - Preliminary
11/05/24 13:46 Anaerobic Culture - Preliminary
Groin - Right Culture pending. Anaerobic cultures are examined after 3
days incubation. Additional information to follow.
11/04/24 09:49 Blood Culture - Preliminary
Blood/Venous No Growth in 48 hours- Final report to follow
11/04/24 09:48 Blood Culture - Preliminary
Blood/Venous No Growth in 48 hours- Final report to follow
11/04/24 09:48 Wound Culture - Preliminary
Groin - Right Gram Stain - Preliminary
11/04/24 16:42 MRSA Screen - Final
Nose No Methicillin Resistant Staphylococcus aureus isolated.
Therapeutic Drug Monitoring
Vancomycin Trough 7.5 ug/ml (5-20) 11/06/24 05:48
[2024-11-07] MEDS: LOVENOX SC ×2 (11:25→20:00)
--- NOTE | 2024-11-07 11:43 | CM ---
CM reviewed chart, patient seen bedside. Patient denies needs at this time. Patient remains on IV antibiotics at this time. CM will continue to follow for all discharge planning needs.
Plan; home no needs likely.
[2024-11-07 12:30] LABS: Glucose - Point of Care 99 mg/dl (70-99)
[2024-11-07 15:55] VITALS: BP 148/92
--- NOTE | 2024-11-07 16:37 | W.PN.HOSP.TC ---
Today's Communication/Plan
-
Continue antibiotics, follow cultures
Assessment / Plan
Assessment / Plan
Physical Exam
General: Comfortable and Conversant
HEENT: Normocephalic. Moist mucous membranes
Respiratory: Clear to Auscultation Bilaterally
Cardiac: S1/S2, Regular Rate and Rhythm
GI: Soft and Non Tender. Positive bowel sounds.
Musculoskeletal: No Cyanosis
Skin: Warm. Dry. Right groin with area of exudate and significant surrounding erythema.
Neuro: Awake, Alert and Oriented
Hematologic/Lymphatic: Lymphadenopathy (Right groin)
Psych: Calm
Assessment/Plan
29 y/o male with history of obesity who presented with increasing pain, redness and drainage from right groin area. Patient reports he was seen at urgent care on October 31, 2024 at which time he was started on Bactrim for right groin cellulitis. He
reported redness was improving particularly along the thigh but over the 24 hours prior to presentation, he had been experiencing worsening pain and began with a significant amount of drainage from the area. He reported fevers as high as 101 F on
October 31, 2024, but notes over the past few temps (prior to presentation( have been lower around 99 F. He reports some chills the first night, but again reported that those are improving.
Triage VS: T 98.1, P 98, RR 18, SpO2 99%
LABS: WBC 12.9, Hg 13.9, PLT 293, Na 141, K+ 4.2, CO2 23, Cr 1.1, Glucose 121, T. Bili 1.1, ALT 70, lactate 1.[address]:
IMPRESSION:
1. MODERATE to SEVERE RIGHT INGUINAL CELLULITIS.
2. Mild reactive right inguinal lymphadenopathy.
PELVIS: There is a moderate to large amount of focal subcutaneous edema in the right inguinal region extending from the skin surface to the right inguinal canal. There is overlying mild skin thickening. There is a mild amount of right inguinal
lymphadenopathy. There is no evidence for rim-enhancing enhancing loculated fluid collection to suggest an abscess. There is no evidence for soft tissue emphysema.
Severe Right Groin Cellulitis
Sepsis 2/2 Above
-patient likely had a collection that is now draining resulting in resolution of pain; no abscess seen on CT
-continue Vanc/Cefepime and Flagyl was added on for anaerobic coverage
-IVF
-pain control
-General surgery was consulted: performed I&D on 11/05/24 -- no vinnie pus, some murky fluid was sent for culture
-Follow cultures
-ID consulted given severity and location of cellulitis, appreciate their evaluation and recommendations
Mild Hypernatremia - RESOLVED
-Encouraged patient to drink more water
Allergic Reaction to contrast
-patient had hives post contrast; he was given Benadryl
-Hives placed in allergy list
Class III Obesity
-Affects all aspects of care
DVT Prophylaxis: Lovenox
Code Status: Full Code
Anticipated Discharge: > 48 hours
Subjective/Interval History
-
Date of Service: November 07, 2024
Patient was seen and examined. He reported feeling okay, denied any new symptoms or complaints.
Objective Data
-
Labs:
Laboratory Results
11/07/24
06:33
WBC 11.2 H
Hgb 14.0
Hct 39.4
Plt Count 348
Sodium 141
Potassium 4.4
Chloride 104
Carbon Dioxide 27
BUN 13
Creatinine 1.0
Glucose 97
Calcium 9.4
Vital Signs:
Vital Signs
Temp Pulse Resp BP Pulse Ox
98.1 F 100 20 148/92 98
11/07/24 15:55 11/07/24 15:55 11/07/24 15:55 11/07/24 15:55 11/07/24 15:55
I&O
11/06/24 11/07/24 11/08/24
06:59 06:59 06:59
Intake Total 1680 / 1680 1200 / 1200 855 / 855
Balance 1680 / 1680 1200 / 1200 855 / 855
--- NOTE | 2024-11-07 17:12 | W.PN.ID1 ---
Date of Service
Date of Service: November 07, 2024
Today's Communication
Continue antibiotics. Transition to cefazolin.
Assessment / Plan
Right groin SSTI
Fevers
Leukocytosis
Morbid obesity
Recommendations:
Cultures with coag negative staph and diphtheroids, although patient was on Bactrim when collected.
No MRSA recovered.
Transition to cefazolin 2 g IV every 8 hours.
Local care to the wound area.
Micro to workup the recovered coag negative staph.
Further recommendations as additional data is returned.
Chief Complaint
-: Cellulitis
Subjective / Review of Systems
Review of Systems: No Fever and No Chills
Vital Signs / Physical Exam
Vital Signs
Vital Signs
Temp Pulse Resp BP Pulse Ox
98.1 F 100 20 148/92 98
11/07/24 15:55 11/07/24 15:55 11/07/24 15:55 11/07/24 15:55 11/07/24 15:55
Physical Exam
Constitutional: No Acute Distress, Comfortable and Non-toxic
Pulmonary: Non Labored
Gastrointestinal: Non Distended
Wound: Other (Right groin with bloody wound. No purulence. Groin with ongoing marked induration although erythema seems to have improved.)
Neurological: Awake and Alert
Psychological: Calm
Objective Data
Lab Data
Lab Results
11/07/24 06:33
11/07/24 06:33
Estimated Creat Clear > 125 ml/min 11/07/24 06:33
Lactic Acid 1.6 mmol/L (0.7-2.0) 11/04/24 09:48
Total Bilirubin 1.1 mg/dl (0.2-1.3) 11/04/24 09:48
AST 26 U/L (17-59) 11/04/24 09:48
ALT 70 U/L (0-50) H 11/04/24 09:48
Alkaline Phosphatase 60 U/L (38-126) 11/04/24 09:48
Most recent labs reviewed.
Micro Results:
11/05/24 13:46 Anaerobic Culture - Preliminary
Groin - Right Culture pending. Anaerobic cultures are examined after 3
days incubation. Additional information to follow.
11/04/24 09:48 Blood Culture - Preliminary
Blood/Venous No Growth in 72 hours- Final report to follow
11/04/24 09:49 Blood Culture - Preliminary
Blood/Venous No Growth in 72 hours- Final report to follow
11/04/24 09:48 Wound Culture - Preliminary
Groin - Right Gram Stain - Preliminary
11/05/24 14:07 Wound Culture - Preliminary
Groin - Right Gram Stain - Preliminary
11/04/24 16:42 MRSA Screen - Final
Nose No Methicillin Resistant Staphylococcus aureus isolated.
Imaging:
11/04/2024 CT pelvis with contrast: There is a moderate to large amount of focal subcutaneous edema in the right inguinal region extending from the skin surface to the right inguinal canal. There is overlying mild skin thickening. There is a mild
amount of right inguinal lymphadenopathy. There is no evidence for rim-enhancing enhancing loculated fluid collection to suggest an abscess. There is no evidence for soft tissue emphysema.
[2024-11-07] MEDS: ANCEF 10 IV (18:34)
[2024-11-07 23:30] VITALS: BP 172/105
[2024-11-08 00:10] VITALS: BP 172/105
[2024-11-08] MEDS: ANCEF 10 IV ×3 (02:15→17:08)
[2024-11-08 06:32] VITALS: BP 151/90
[2024-11-08 07:36] VITALS: BP 144/85
[2024-11-08 07:39] LABS: % Basophils 1.2 % (0-2); % Eosinophils 3.5 % (0-6); % Immature Granulocytes 1.4 % (0-0.5); % Lymphocytes 23.8 % (20.5-51.1); % Monocytes 7.8 % (1.7-9.3); % Neutrophils 62.3 % (42.2-75.2); Absolute Basophils 0.1 10^3/uL (0-0.2); Absolute Eosinophils 0.4 10^3/uL (0-0.7); Absolute Immature Granulocytes 0.2 10^3/uL (0-0.05); Absolute Lymphocytes 2.5 10^3/uL (1.2-3.4); Absolute Monocytes 0.8 10^3/uL (0.1-0.6); Absolute Neutrophils 6.6 10^3/uL (1.4-6.5); Hematocrit 39.1 % (39.0-52.0); Hemoglobin 14.2 g/dL (13.0-18.0); Mean Corp Hgb Conc. 36.3 g/dL (33.0-37.0); Mean Corpuscular Hgb 30.7 pg (27.0-31.0); Mean Corpuscular Volume 84.6 fL (80.0-94.0); Mean Platelet Volume 9.3 fL (7.4-10.4); Nucleated Red Blood Cells % 0 % (-); Platelet Count 337 10^3/uL (130-400); Red Blood Cell Count 4.62 10^6/uL (4.70-6.10); Red Cell Dist. Width 11.6 % (11.5-14.5); White Blood Cell Count 10.6 10^3/uL (4.8-10.8)
[2024-11-08 08:21] LABS: Blood Urea Nitrogen 14 mg/dl (9-20); Calcium 9.6 mg/dl (8.4-10.2); Carbon Dioxide 28 mmol/L (22-30); Chloride 104 mmol/L (98-107); Estimated Creatinine Clearance > 125 ml/min; Glucose 95 mg/dl (70-99); Potassium 4.6 mmol/L (3.5-5.1); Sodium 141 mmol/L (135-145); eGFR > 60.00
[2024-11-08] MEDS: LOVENOX SC (09:35)
--- NOTE | 2024-11-08 11:23 | W.PN.HOSP.TC ---
Today's Communication/Plan
-
Discharge today
Assessment / Plan
Assessment / Plan
Physical Exam
General: Comfortable and Conversant
HEENT: Normocephalic. Moist mucous membranes
Respiratory: Clear to Auscultation Bilaterally
Cardiac: S1/S2, Regular Rate and Rhythm
GI: Soft and Non Tender. Positive bowel sounds.
Musculoskeletal: No Cyanosis
Skin: Warm. Dry. Right groin with area of exudate and significant surrounding erythema.
Neuro: Awake, Alert and Oriented
Hematologic/Lymphatic: Lymphadenopathy (Right groin)
Psych: Calm
Assessment/Plan
29 y/o male with history of obesity who presented with increasing pain, redness and drainage from right groin area. Patient reports he was seen at urgent care on October 31, 2024 at which time he was started on Bactrim for right groin cellulitis. He
reported redness was improving particularly along the thigh but over the 24 hours prior to presentation, he had been experiencing worsening pain and began with a significant amount of drainage from the area. He reported fevers as high as 101 F on
October 31, 2024, but notes over the past few temps (prior to presentation( have been lower around 99 F. He reports some chills the first night, but again reported that those are improving.
Triage VS: T 98.1, P 98, RR 18, SpO2 99%
LABS: WBC 12.9, Hg 13.9, PLT 293, Na 141, K+ 4.2, CO2 23, Cr 1.1, Glucose 121, T. Bili 1.1, ALT 70, lactate 1[address]:
IMPRESSION:
1. MODERATE to SEVERE RIGHT INGUINAL CELLULITIS.
2. Mild reactive right inguinal lymphadenopathy.
PELVIS: There is a moderate to large amount of focal subcutaneous edema in the right inguinal region extending from the skin surface to the right inguinal canal. There is overlying mild skin thickening. There is a mild amount of right inguinal
lymphadenopathy. There is no evidence for rim-enhancing enhancing loculated fluid collection to suggest an abscess. There is no evidence for soft tissue emphysema.
Severe Right Groin Cellulitis
Sepsis 2/2 Above
-Cultures with coagulase negative staph and diphtheroids, although patient was on Bactrim when collected
-patient likely had a collection that is now draining resulting in resolution of pain; no abscess seen on CT
-Status post Vanc/Cefepime and Flagyl -- now STOPPED
-On discharge, transition to: cephalexin 1 g p.o. 4 times daily (2x 500 mg tablets) for an additional 7 days, and Doxycycline 100 mg PO BID x 7 days
-General surgery was consulted: performed I&D on 11/05/24 -- no vinnie pus, some murky fluid was sent for culture
-Follow cultures
-ID consulted given severity and location of cellulitis, appreciate their evaluation and recommendations
Mild Hypernatremia - RESOLVED
-Encouraged patient to drink more water
Allergic Reaction to contrast
-patient had hives post contrast; he was given Benadryl
-Hives placed in allergy list
Class III Obesity
-Affects all aspects of care
DVT Prophylaxis: Lovenox
Code Status: Full Code
More than 30 minutes spent in discharge including
Final examination of the patient
Summarizing hospital stay
Instructions for continuing care to all relevant caregivers
Preparation of discharge records, prescriptions, and referral forms
Total time spent (in minutes): 39
Anticipated Discharge: Today
Subjective/Interval History
-
Date of Service: November 08, 2024
Patient was seen and examined. He reported feeling fine, denied any new symptoms or complaints.
Objective Data
-
Labs:
Laboratory Results
11/08/24
06:59
WBC 10.6
Hgb 14.2
Hct 39.1
Plt Count 337
Sodium 141
Potassium 4.6
Chloride 104
Carbon Dioxide 28
BUN 14
Creatinine 1.0
Glucose 95
Calcium 9.6
Vital Signs:
Vital Signs
Temp Pulse Resp BP Pulse Ox
98.3 F 75 20 144/85 99
11/08/24 07:36 11/08/24 07:36 11/08/24 07:36 11/08/24 07:36 11/08/24 07:36
I&O
11/07/24 11/08/24 11/09/24
06:59 06:59 06:59
Intake Total 1300 / 1300 2295 / 2295
Output Total 500 / 500
Balance 1300 / 1300 1795 / 1795
--- NOTE | 2024-11-08 12:29 | W.PN.ID1 ---
Date of Service
Date of Service: November 08, 2024
Today's Communication
Continue antibiotics. See below�
Assessment / Plan
Right groin SSTI
Fevers
Leukocytosis
Morbid obesity
Recommendations:
Cultures with coag negative staph and diphtheroids, although patient was on Bactrim when collected.
No MRSA recovered.
White count normalized.
No objection to discharge from a Infectious Disease standpoint.
At D/C, would transition to:
- cephalexin 1 g p.o. 4 times daily (2x 500 mg tablets) for an additional 7 days
- Doxycycline 100 mg PO BID x 7 day
Local care to the wound area.
Micro to workup the recovered coag negative staph.
����������������������������������������������������������
Chief Complaint
-: Cellulitis
Subjective / Review of Systems
Patient seen and examined. He reports that right groin has less discomfort.
Review of Systems: No Fever and No Chills
Vital Signs / Physical Exam
Vital Signs
Vital Signs
Temp Pulse Resp BP Pulse Ox
98.3 F 75 20 144/85 99
11/08/24 07:36 11/08/24 07:36 11/08/24 07:36 11/08/24 07:36 11/08/24 07:36
Physical Exam
Constitutional: No Acute Distress, Comfortable and Non-toxic
Pulmonary: Non Labored
Gastrointestinal: Non Distended
Wound: Other (Right groin with bloody wound. Packing in place. No purulence. Groin with ongoing induration although erythema with continued improvement)
Neurological: Awake and Alert
Psychological: Calm
Objective Data
Lab Data
Lab Results
11/08/24 06:59
11/08/24 06:59
Estimated Creat Clear > 125 ml/min 11/08/24 06:59
Lactic Acid 1.6 mmol/L (0.7-2.0) 11/04/24 09:48
Total Bilirubin 1.1 mg/dl (0.2-1.3) 11/04/24 09:48
AST 26 U/L (17-59) 11/04/24 09:48
ALT 70 U/L (0-50) H 11/04/24 09:48
Alkaline Phosphatase 60 U/L (38-126) 11/04/24 09:48
Most recent labs reviewed.
Micro Results:
11/04/24 09:49 Blood Culture - Preliminary
Blood/Venous No Growth in 4 days- Final report to follow
11/04/24 09:48 Blood Culture - Preliminary
Blood/Venous No Growth in 4 days- Final report to follow
11/05/24 13:46 Anaerobic Culture - Preliminary
Groin - Right NO ANAEROBES ISOLATED
11/04/24 09:48 Wound Culture - Preliminary
Groin - Right Gram Stain - Preliminary
11/05/24 14:07 Wound Culture - Preliminary
Groin - Right Gram Stain - Preliminary
11/04/24 16:42 MRSA Screen - Final
Nose No Methicillin Resistant Staphylococcus aureus isolated.
Imaging:
11/04/2024 CT pelvis with contrast: There is a moderate to large amount of focal subcutaneous edema in the right inguinal region extending from the skin surface to the right inguinal canal. There is overlying mild skin thickening. There is a mild
amount of right inguinal lymphadenopathy. There is no evidence for rim-enhancing enhancing loculated fluid collection to suggest an abscess. There is no evidence for soft tissue emphysema.
Care Review
Plan reviewed with: Physician (Hospitalist)
[2024-11-08 15:00] VITALS: BP 133/78
--- NOTE | 2024-11-08 15:25 | CM ---
CM reviewed chart, patient seen bedside. Patient reports no needs upon discharge, reports his family will provide transportation home. CM will continue to follow for all discharge planning needs.
Plan; home with family, no needs.
== END 2024-11-08 18:29 | disposition home or self-care (01) | DRG 872 ==
LOC: 4 WEST ACU 13:41
PROVIDERS: Physician Assistant; Physician Assistant Medical; ADMITTING PHYSICIAN Student in an Organized Health Care Education/Training Program; ATTENDING PHYSICIAN Hospitalist; CONSULT PHYSICIAN Internal Medicine Infectious Disease; CONSULT PHYSICIAN Surgery; EMERGENCY PHYSICIAN Emergency Medicine; FAMILY PHYSICIAN Nurse Practitioner
PROC: 0J9C0ZX Drainage of Pelvic Region Subcutaneous Tissue and Fascia, Open Approach, Diagnostic (ICD-10-PCS; 2024-11-05)
DX: A41.9 Sepsis, unspecified organism (principal); L03.314 Cellulitis of groin; Z68.43 Body mass index [BMI] 50.0-59.9, adult; L02.214 Cutaneous abscess of groin; E87.0 Hyperosmolality and hypernatremia; R10.30 Lower abdominal pain, unspecified; E66.813 Obesity, class 3; L73.1 Pseudofolliculitis barbae; R59.0 Localized enlarged lymph nodes; R23.4 Changes in skin texture; L50.0 Allergic urticaria; T50.8X5A Adverse effect of diagnostic agents, initial encounter; Y92.239 Unspecified place in hospital as the place of occurrence of the external cause; Z91.041 Radiographic dye allergy status
CPT/HCPCS: 72193; 80048; 80053; 80202; 82962; 83036; 83605; 85025; 85027; 87040; 87070; 87075; 87077; 87147; 87205; 96361; 96374; 96375; 99285; Q9967

== ENCOUNTER → 2025-01-31 08:39 | Outpatient (REF) | payer OTHER, SELFPAY | LOC: HWRAD 08:39 | PROVIDERS: ATTENDING PHYSICIAN Hospitalist | DX: R74.8 Abnormal levels of other serum enzymes (principal) | CPT/HCPCS: 76700 ==